=== PATIENT | male | born 1970 | race Asian ===

== ENCOUNTER → 2017-10-05 | Outpatient (CLI) | payer OTHER ==
[~2017-10-05] VITALS: Ht 177.8 cm; Wt 95.3 kg
[~2017-10-05] MED LIST: DAILY MULTIPLE1 EACH PO; METAMUCIL POWD822 G1 PO
== END | disposition home or self-care (01) ==
LOC: AMB 08:58
DX: Z12.0 Encounter for screening for malignant neoplasm of stomach (principal); K22.10 Ulcer of esophagus without bleeding; K21.0 Gastro-esophageal reflux disease with esophagitis; Z80.0 Family history of malignant neoplasm of digestive organs; Z86.010 Personal history of colon polyps; E78.5 Hyperlipidemia, unspecified; E66.9 Obesity, unspecified; Z68.30 Body mass index [BMI] 30.0-30.9, adult; Z87.891 Personal history of nicotine dependence; Z82.3 Family history of stroke; Z82.49 Family history of ischemic heart disease and other diseases of the circulatory system; Z83.3 Family history of diabetes mellitus; Z80.8 Family history of malignant neoplasm of other organs or systems
CPT/HCPCS: 88305; 88342 TC